=== PATIENT | male | born 1995 | race Caucasian/White ===

== ENCOUNTER → 2023-11-19 09:09 | Outpatient (REF) | payer BC, SELFPAY ==
[2023-11-19 12:38] LABS: % Basophils 0.4 % (0-2); % Eosinophils 0.1 % (0-6); % Immature Granulocytes 0.5 % (0-0.5); % Lymphocytes 5.9 % (20.5-51.1); % Neutrophils 89.1 % (42.2-75.2); Absolute Lymphocytes 0.5 10^3/uL (1.2-3.4); Absolute Monocytes 0.3 10^3/uL (0.1-0.6); Absolute Neutrophils 7.3 10^3/uL (1.4-6.5); Hematocrit 41.3 % (39.0-52.0); Hemoglobin 14.6 g/dL (13.0-18.0); Mean Corp Hgb Conc. 35.4 g/dL (33.0-37.0); Mean Corpuscular Hgb 31.7 pg (27.0-31.0); Mean Corpuscular Volume 89.6 fL (80.0-94.0); Mean Platelet Volume 12.2 fL (7.4-10.4); Nucleated Red Blood Cells % 0 % (-); Platelet Count 182 10^3/uL (130-400); Red Blood Cell Count 4.61 10^6/uL (4.70-6.10); White Blood Cell Count 8.2 10^3/uL (4.8-10.8)
[2023-11-19 12:45] LABS: ALT (SGPT) 14 U/L (0-50); AST (SGOT) 20 U/L (17-59); Albumin 4.4 g/dl (3.5-5.0); Alkaline Phosphatase 51 U/L (38-126); Blood Urea Nitrogen 18 mg/dl (9-20); Carbon Dioxide 33 mmol/L (22-30); Chloride 99 mmol/L (98-107); Glucose 83 mg/dl (70-99); Potassium 4.1 mmol/L (3.5-5.1); Sodium 138 mmol/L (135-145); Total Protein 6.7 g/dl (6.3-8.2); eGFR > 60.00
[2023-11-19 12:50] LABS: C-Reactive Protein < 5.00 mg/L (0.0-10.00)
[2023-11-19 13:02] LABS: Erythrocyte Sed Rate 10 mm/hour (0-20)
[2023-11-19 13:07] LABS: Vitamin D, 25-OH*** 27.5 ng/mL (30-80)
[2023-11-19 13:57] LABS: Folate 9.2 ng/ml (2.76-20); Vitamin B12 228 pg/ml (239-931)
[2023-11-20 18:34] LABS: Hepatitis B Surface Antigen Negative (Negative)
[2023-11-20 18:52] LABS: Hepatitis B Core Ab, Total Negative (Negative)
[2023-11-20 20:02] LABS: Hepatitis B Surface Antibody Indeterminate
[2023-11-21 14:04] LABS: Quantiferon Mitogen minus NIL 9.99 IU/mL; Quantiferon NIL 0.01 IU/mL; Quantiferon TB Gold Plus Negative (Negative)
== END ==
LOC: HWLAB 09:09
PROVIDERS: ATTENDING PHYSICIAN Specialist; FAMILY PHYSICIAN Internal Medicine
DX: K50.012 Crohn's disease of small intestine with intestinal obstruction (principal)
CPT/HCPCS: 36415; 80053; 82306; 82607; 82746; 85025; 85652; 86140; 86480; 86704; 86706; 87340